=== PATIENT | female | born 1995 | race Hispanic/Latino ===

== ENCOUNTER 2018-10-31 11:13 | Day surgery (SDC) | payer OTHER ==
[2018-10-31 12:24] VITALS: BP 112/57; TEMP 98.3; BMI 24.5
[2018-10-31 12:40] LABS: Bilirubin Negative (Negative); Blood, Urine Negative (Negative); Clarity CLEAR (Clear); Glucose, Urine (Dipstick) Negative (Negative); Leukocyte Small (Negative); Nitrite Negative (Negative); Protein, Urine (Dipstick) Negative (Neg-Trace); Specific Gravity, Urine 1.007 (1.002-1.036); Urobilinogen 0.2 mg/dL (0.2-1.0)
[2018-10-31 12:41] LABS: Bacteria/HPF None Seen HPF (None Seen); Hyaline Casts/LPF 0-3 HYALINE CAST LPF (0-3 Hyaline); Pathc Cast-AUWi Flag 0.14 (0-2.49); RBC/HPF 0-3 HPF (0-3); Squamous Epithelial 0-3 HPF (0-3); WBC/HPF 0-3 HPF (0-3)
--- NOTE | 2018-10-31 14:32 | ULT ---
COMPLETE STANDARD OB ULTRASOUND: HISTORY: Lack of care. COMPARISON: None. TECHNIQUE: Real-time jalloh-scale, color Doppler, and spectral analysis of the gravid uterus is performed via a tr ansabdominal approach. FINDINGS: Single viable intrauterine with an average ultrasound age of 21 weeks and 3 days and an est imated date of delivery of 03/10/2019. Estimated weight is 1 lb (55th percentile). BIOMETRY: BIPARIETAL DIAMETER: 22 weeks 0 days (5.29 cm). HEAD CIRCUMFERENCE: 21 weeks 1 day (18.9 cm). ABDOMINAL CIRCUMFERENCE: 21 weeks 5 days (16.7 cm). FEMUR LENGTH: 22 weeks 0 days (3.75 cm). AMNIOTIC FLUID INDEX: 10.8 cm. heart rate documented at 123 beats per minute. The position is vertex. The placenta is posterior. Amniotic fluid is adequate. The cervical, thoracic, and lumbar spine, as well as the sacrum, diaphragm, bladder, left kidney, right kidney, la teral ventricles, cerebellum, three-vessel cord, stomach, cord insertion, posterior fossa, nose, and lips are all normal. The face is not well seen. The cervix measures 4.3 cm. No placenta previa. IMPRESSION: Normal single viable intrauterine . POS: [facility]
--- NOTE | 2018-11-01 07:08 | SS ---
DATE OF ADMISSION: 10/31/2018 DATE OF DISCHARGE: 10/31/2018 LABOR AND DELIVERY TRIAGE NOTE. EVALUATING PHYSICIAN: Antoni Meade MD CHIEF COMPLAINT: Pelvic pressure. HISTORY OF PRESENT ILLNESS: Ms. Bryant is a 23-year-old female, G6, P5, with a reported estimated date of confinement of 03/09/2019, who presents complaining of pelvic pressure over the last 24 hours. [facility] and is currently confined there. She denies ruptured membranes, vaginal bleeding, or change in bowel or bladder habits. She reports that her estimated date of confinement was obtained from an early ultrasound. PAST OBSTETRICAL HISTORY: Includes 5 vaginal deliveries with the earliest occurring at 32 weeks. PAST MEDICAL HISTORY: None. PAST SURGICAL HISTORY: None. CURRENT MEDICATIONS: vitamins. ALLERGIES: NO KNOWN ALLERGIES. SOCIAL HISTORY: She denies tobacco, alcohol, or drug abuse. FAMILY HISTORY: Unremarkable. REVIEW OF SYSTEMS: She denies nausea, vomiting, fever, chills, ruptured membranes, vaginal bleeding, or change in bowel or bladder habits. PHYSICAL EXAMINATION: VITAL SIGNS: In triage, her vital signs are stable and she is afebrile. ABDOMEN: Soft, nontender, and gravid. The fundus extends to the umbilicus. heart tones are stable. There are no decelerations. No uterine contractions were seen. OB ultrasound shows a fetus in the cephalic presentation with biometry that are consistent with her stated dates. LINUS is within normal limits. Her cervical length is 4 cm. Urinalysis returns and it is unremarkable. ASSESSMENT: 1. 21-week intrauterine . 2. No evidence of labor or urinary tract infection at this time. PLAN: The patient will be discharged. I have recommended to personnel with her that due to her high-risk , that I would recommend light duty for her as well as being seen in the [facility] high-risk OB system. I also mentioned to her that she would likely potentially benefit from weekly progesterone. She understands all the above. She was given complete labor precautions and was sent back in good condition. Job ID: [id number]
== END 2018-10-31 13:45 ==
LOC: L&D/OP 11:13 → ERS 11:13 → EDSTATUS 11:20 → L&D/OP 13:45
PROVIDERS: ATTEND Obstetrics & Gynecology
DX: O99.89 Other specified diseases and conditions complicating pregnancy, childbirth and the puerperium (principal); R10.2 Pelvic and perineal pain; O09.212 Supervision of pregnancy with history of pre-term labor, second trimester; Z3A.21 21 weeks gestation of pregnancy; Z79.899 Other long term (current) drug therapy
CPT/HCPCS: 76805; 81003; 81015; 99282